=== PATIENT | female | born 1970 | race Caucasian/White ===

== ENCOUNTER 2016-12-20 16:27 | Inpatient (IN) | payer MEDICARE, BC ==
--- NOTE | ~2016-12-20 | HP ---
History And Physical [place] [id number] [facility] [place]. [address] NAME: ORLIN VERA : 68 STATUS : ADM Milagros PAT#: [id number] AGE: 46 ADM/REG DATE : 12/20/16 MR#: [id number] REPORT SERV DATE: 12/21/16 DICTATED BY: MICHAEL MURDOCK DATE: 12/20/16 REPORT STATUS : Draft TRANSCRIBED BY: MODL DATE: 12/20/16 DATE OF ADMISSION: 12/20/2016 REASON FOR ADMISSION: Nausea, vomiting, and diarrhea. Primary care doctor appears to be unclear, sees Dr. Hobson for her endocrinology needs for which she has been diagnosed with Gasconade's for the past few years. CHIEF COMPLAINT: Nausea, vomiting, and diarrhea. HISTORY OF PRESENT ILLNESS: This is an unfortunate 46-year-old female, apparently seems to have significant utilization of the hospital multiple admissions in the last 12 months, recently discharged in July 2016. The patient has a known history of adrenal insufficiency with Gasconade's disease with clinical presentation at that time being weakness with nausea, vomiting, and diarrhea. The patient is taking about 45 mg daily of hydrocortisone, has not been able to taper off. Sees Dr. Hobson as an outpatient. Has known history of IBS, fibromyalgia, fatty liver disease, hypertension, morbid obesity, chronic pain, known history of lumbar fusion, cervical fusion, chronic pain management on not only Oxymorphone, but also p.r.n. Roxicodone. Known history of DJD, hyperlipidemia, migraine headaches. Has not been able to tolerate any preventive medication like Topamax given interaction with her other medications. The patient comes in since yesterday having nausea, vomiting, and diarrhea. The patient states increased weakness, not able to get out of bed, consistent with her prior Gasconade's disease presentations. She is not hypotensive which is classic with Gasconade's crisis (167/88), but complains of exquisite pain all over, but most notably in her low back. Once more IV Dilaudid she just got 2 mg, thereafter says her pain is 6/10 still. The patient states she had a low-grade fever. No chills. Positive nausea. Was greenish with emesis. Positive diarrhea. No chest pain. No chest pressure. No increased shortness of breath. No recent cough for the last 48 hours. Positive abdominal pain consistent with her past adrenal insufficiency presentations. The patient in the emergency department has received a liter of LR bolus, Solu-Cortef 100 mg IV, Zofran 4 mg, and Dilaudid 2 mg. The patient as an outpatient received 40 mg of intramuscular Solu-Medrol. REVIEW OF SYSTEMS: Review of systems done, see HPI. Otherwise, negative. PAST MEDICAL HISTORY: See above. PAST SURGICAL HISTORY: See above including cholecystectomy, hysterectomy, and tonsillectomy. ALLERGIES: PREDNISONE UNCLEAR REACTION, APPARENTLY MAKES HER HAVE ADRENAL CRISIS. History And Physical [address] [place]. [address] NAME: ORLIN VERA : 68 STATUS : ADM Milagros PAT#: [id number] AGE: 46 ADM/REG DATE : 12/20/16 MR#: [id number] REPORT SERV DATE: 12/21/16 DICTATED BY: MICHAEL MURDOCK DATE: 12/20/16 REPORT STATUS : Draft TRANSCRIBED BY: DAVID DATE: 12/20/16 HOME MEDICATIONS: See MAR. We will continue what is relevant. SOCIAL HISTORY: Does not smoke. Do drugs. Do alcohol. , two biological children. Homemaker in the past. FAMILY HISTORY: Hypertension at least one parent. AAA in her father. OBJECTIVE: VITAL SIGNS: 167/88, 99.2, pulse 99, 18 respirations, and 98% on room air. GENERAL: No acute distress. HEENT: PERRLA. No scleral icterus. CARDIOVASCULAR: Muffled heart sounds. Regular rate and rhythm. RESPIRATORY: Decreased breath sounds bibasilarly. Limited by body habitus. ABDOMEN: Mild tenderness to palpation, more periumbilical region. No peritoneal signs. No rebound tenderness. EXTREMITIES: 1+ nonpitting edema. NEURO: A and O x4/4. GCS 15. PSYCH: Mildly anxious. LABORATORY DATA: White count is a bit mildly elevated 13.4000, 15.7 hemoglobin, and 315,000 platelets. A 4.0 of potassium, 26 bicarb, 0.71 creatinine, 14 BUN, 139 sodium, 179 sugar, and alkaline phosphatase mildly elevated 121. LFTs otherwise normal. Urinalysis is clean. Imaging CT abdomen and pelvis, which is pending. ASSESSMENT AND PLAN: 1. Nausea, vomiting, and diarrhea which is consistent with her past adrenal insufficiency exacerbation presentations. Usually abdominal pain and nausea would be consistent in this situation. The patient does not have the classical sign of hypotension thankfully. 2. Adrenal insufficiency exacerbation. 3. History of taking doxycycline for rosacea rule out Clostridium difficile with diarrhea. 4. Systemic inflammatory response syndrome. 5. Migraine headaches lasting more than 4 hours. 6. Chronic opioid dependence. PLAN: Admit the patient for observation. I will panculture the patient given SIRS criteria, empiric Levaquin and Flagyl thereafter, already given 100 mg of IV Solu-Cortef. We will do D50 IV tomorrow. We will also go ahead and give her Imitrex for systolic is less than 160. For migraine headache if persist despite Imitrex consider possible CT. Elucidate nausea, vomiting, and diarrhea with a stool C. diff and CT abdomen and pelvis. We will also give her IV Dilaudid for pain control. PPI IV b.i.d. could consider possible GI cocktail which I History And Physical [address] [address] NAME: ORLIN VERA : 68 STATUS : ADM Milagros PAT#: [id number] AGE: 46 ADM/REG DATE : 12/20/16 MR#: [id number] REPORT SERV DATE: 12/21/16 DICTATED BY: MICHAEL MURDOCK DATE: 12/20/16 REPORT STATUS : Draft TRANSCRIBED BY: MODL DATE: 12/20/16 will start now for possible peptic ulcer disease, has rapid improvement despite Solu-Cortef consider possible peptic ulcer disease. See rest of my orders. All questions were answered. It took well over 60 minutes to do. I would like to note that some of the staff in the ER stay the patient may be very much pain seeking. WST/MODL Michael Murdock DO / [id number] CC: MD Kirk Truong M.D.
--- NOTE | ~2016-12-20 | DS ---
Discharge Summary [facility] [address] [facility] [place]. [address] NAME: ORLIN VERA : 68 STATUS : DIS IN PAT#: [id number] AGE: 46 ADM/REG DATE : 12/20/16 MR#: [id number] REPORT SERV DATE: 12/25/16 DICTATED BY: ATIF STORY DATE: 12/22/16 REPORT STATUS : Draft TRANSCRIBED BY: MODAnastacia DATE: 12/22/16 ADMISSION DATE: 12/20/2016 DISCHARGE DATE: 12/22/2016 DISCHARGE DIAGNOSES: 1. Acute gastroenteritis. 2. Phil Campbell disease with acute crisis. 3. Chronic pain syndrome. 4. Irritable bowel syndrome. 5. Hypertension. 6. Morbid obesity. 7. Degenerative joint disease. 8. Hyperlipidemia. 9. Obstructive sleep apnea, on CPAP. 10.Fibromyalgia. 11.Migraine headaches. CONSULTANTS DURING THIS HOSPITALIZATION: None. INVASIVE PROCEDURES DONE DURING THIS HOSPITALIZATION: None. BRIEF HISTORY OF PRESENT ILLNESS: The patient is a 46-year-old white female, suffering from Phil Campbell disease, came in with nausea, vomiting, and diarrhea with dehydration and hypovolemia, so she was admitted. For detailed history and physical exam, please see note dictated by Dr. Josué Jones on 12/20/2016. HOSPITAL COURSE: After being admitted to the hospital, this patient was given IV Solu- Cortef. She was given aggressive IV fluid resuscitation. The CT of the abdomen and pelvis was done, which showed some dilated loops of bowel with fluid collection and liquid stool, which was thought to be gastroenteritis in nature, but there was no evidence of any obstruction or ileus. This patient is tolerating now a soft diet. Her lab work has all remained completely normal. Her blood pressure is improved to normal levels and she feels well enough that she wants to go home and recover in the home setting. DISCHARGE DISPOSITION: Home. DISCHARGE ACTIVITY: As tolerated. DISCHARGE DIET: Low-sodium diet. DISCHARGE MEDICATIONS: ProAir two puffs twice daily p.r.n., albuterol nebulizing treatments q.4-6 hours p.r.n. for shortness of breath, Celebrex 200 mg once daily, Zyrtec 10 mg once daily, Klonopin 1 mg once at bedtime, vitamin B12 1000 mcg p.o. daily, Flexeril 10 mg twice daily p.r.n. for muscle spasms. Voltaren Gel topically scheduled p.r.n. for pain. Trulicity 0.75 mg pen injector subcutaneously Sunday. Vivelle-Dot patch twice weekly, Prozac 20 mg once at bedtime, Advair HFA 115/21 two puffs daily, Cortef 15 mg p.o. every Discharge Summary [place] [address] [address] [address] NAME: ORLIN VERA : 68 STATUS : DIS IN PAT#: [id number] AGE: 46 ADM/REG DATE : 12/20/16 MR#: [id number] REPORT SERV DATE: 12/25/16 DICTATED BY: ATIF STORY DATE: 12/22/16 REPORT STATUS : Draft TRANSCRIBED BY: DAVID DATE: 12/22/16 morning and 5 mg four times daily during the day. Losartan 100 mg every evening, to be held until followed up with primary care physician. Magnesium 400 mg once daily. Metformin will be held as well. Multivitamins one tablet daily, Starlix 120 mg p.o. with meals, oxycodone 10 mg p.o. four times daily p.r.n. for pain, Opana ER 15 mg once at bedtime, Klor-Con 20 mEq twice daily, Mirapex 0.5 mg p.o. after lunch and supper. Lyrica 100 mg p.o. three times daily, promethazine 25 mg every four to six hours p.r.n. for pain, Zantac 300 mg once at bedtime, simvastatin 20 mg p.o. once at bedtime, vitamin E 400 mg p.o. daily, Nasacort AQ two sprays each nostril once daily, Patanase spray, and Solu-Medrol 40 mg IM p.r.n. for Teofilo's crisis. DISCHARGE FOLLOWUP: With Dr. Jesus Hobson as scheduled previously. With Dr. Kirk Dorado in one week for repeat blood pressure check and re-initiation of losartan. More than 30 minutes spent planning this patient's discharge, reconciling medications, discussing hospital care, and follow up with the patient and documenting this discharge. BONNIE/DAVID Atif Story M.D. / [id number] CC: MD Kirk Truong M.D. David Huffman, M.D.
[2016-12-20 15:41] LABS: WBC (NOT ORDERED) (RFLEX) 0 (0-5)
[2016-12-20 15:48] LABS: ASCORBIC ACID (UR NOT ORDER) NEG (NEG); BILIRUBIN, URINE NEGATIVE (NEG); ER URINALYSIS TAT 0 Hrs 08 Mins; KETONE, URINE 20 MG/DL (NEG); LEUKOCYTE ESTERASE(NOT OR NEG (NEG); NITRITE (URINE) NEG (NEG)
[2016-12-20 15:59] LABS: BASOPHILS 0 %; EOSINOPHILS 0.1 %; EOSINOPHILS ABSOLUTE 0.01 10/3/uL (0.0-0.53); IMMATURE GRANULOCYTES 0.4 %; IMMATURE GRANULOCYTES ABSOLUTE 0.05 10/3/uL (0.0-0.11); LYMPHOCYTES ABSOLUTE 0.27 10/3/uL (0.67-4.30); MEAN CORPUS HGB CONC 32.8 g/dL (32.0-36.0); MEAN CORPUSCULAR HEMOGLOB 26.3 pg (26.0-34.0); MEAN CORPUSCULAR VOLUME 80.4 fL (80-100); MEAN PLATELET VOLUME 9.5 fL (9.2-13.0); MONOCYTES 1.3 %; MONOCYTES ABSOLUTE 0.18 10/3/uL (0.21-1.20); NEUTROPHILS 96.2 %; NEUTROPHILS ABSOLUTE 12.91 10/3/uL (2.02-8.40); PLATELET COUNT 315 10/3/uL (150-400); RBC DISTRIBUTION WIDTH 15.2 % (12.0-16.0); RED CELL COUNT 5.96 10/6/uL (4.0-5.6); WHITE BLOOD CELLS 13.4 10/3/uL (4.5-10.5)
[2016-12-20 16:01] LABS: HEMATOCRIT 47.9 % (36.0-48.0); HEMOGLOBIN 15.7 g/dL (12.0-16.0); MANUAL DIFF NO %
[2016-12-20 16:15] LABS: A/G RATIO 1.1 (0.7-1.9); ALBUMIN 4.3 G/DL (3.5-5.0); ALKALINE PHOSPHATASE 121 U/L (45-117); BUN (BLOOD UREA NITROGEN) 14 MG/DL (6-23); CALCIUM, SERUM 9.3 MG/DL (8.5-10.4); CHLORIDE, SERUM 102 MMOL/L (96-112); CO2 (CARBON DIOXIDE) 26 MMOL/L (24-34); CREATININE 0.71 MG/DL (0.55-1.02); GFR AFRICAN AMERICAN 118 ML/MIN (>=60); GFR NON AFRICAN AMERICAN 101 ML/MIN (>=60); GLOBULIN 3.8 G/DL (2.5-4.1); GLUCOSE, SERUM 179 MG/DL (60-99); SGOT(AST) 21 U/L (5-40); SGPT(ALT) 48 U/L (5-65); SODIUM, SERUM 139 MMOL/L (135-148); TOTAL BILIRUBIN 0.6 MG/DL (0-1.2); TOTAL PROTEIN 8.1 G/DL (6.0-8.5)
[~2016-12-20 16:27] MED LIST: AMB10 PO; AMITRIPTYLINE PO; CALCIUM OTC PO; CALTRA600D PO; CALTRAT600 PO; CELEBREX2 PO; CHLORZOXAZON500 MG OR; CLARIT10 PO; CORICIDIN PO; CORTEF5 PO; COZ50 PO; COZAAR100 MG PO; DIL4TAB PO; DIOV80 PO; DIURETIC RX PO; DSS PO; DULERA 200 MCG/13 GM INH; DURA25 TOP; ENDOCET1 TA3 PO; EXALGO8 MG PO; FIBER OTC PO; FIBERCON PO; FISH-EPA1000 MG PO; FLEX PO; FLEXERIL5 MG PO; FLORINEF0.1 MG PO; GLUCPH PO; HYGROTON 25 MG25 MG PO; IBU800 PO; IMITREX PO; IMITREX25 PO; IMITREX50 PO; JARDI25B PO; KDUR20 PO; KLONO1 PO; KLOR-CON M2020 MEQ PO; LINZESS 290 M290 MCG PO; LIOR10 PO; LORTAB10 PO; LYRICA100 MG PO; LYRICA150 MG PO; LYRICA200 MG PO; MAGNESIUM 250MG OTC PO; MAGNESIUM 250MG PO; MAGNESIUM OTC PO; MAGOX4 PO; METHOC750B PO; MIRAPEX250 PO; MIRAPEX5 PO; MONODOX100 MG PO; MOVANTIK25 MG PO; MSCONT15 PO; MULTIPLE VIT PO; MULTIVIT/MIN PO; MULTIVITAMI1 PO; NASACORTAQ NAS; NEUR100 PO; NEUR600 PO; OPANA ER15 MG PO; OXYCOD PO; OXYCODONE HCL 10MG PO; PARAFON FORT PO; PATANASE0.6 % NAS; PCET PO; PEP20 PO; PERCOCET1 TA2 PO; PERCOCET1 TA4 PO; POT GLUCONAT550 M1 PO; POTASSIUM OTC PO; PR25 PO; PRILO PO; PRILOSEC40 MG PO; PROAIR HFA INH; PROVENTSOL INH; PROZAC PO; SENTAB PO; STARLIX120 PO; THERGRANM PO; TOPAMAX25 PO; V5; VIB50 PO; VICTOZA18 MG/3 ML SC; VITAMIN D OTC PO; VITAMIN D1000 UNI1 PO; VITAMIN D31000 UNIT PO; VITE PO; XIFAXAN550 MG PO; ZANAFLEX 4 MG TA4 MG PO; ZANAFLEX2 MG PO; ZANTAC 150 PO; ZOCOR20 PO; ZOFRAN8 PO; ZYRTEC ALLGY10 MG PO; [UNRECOGNIZED DRUG - OTHER] PO; [UNRECOGNIZED DRUG - OTHER] TOP; [UNRECOGNIZED DRUG - REMARK]; [UNRECOGNIZED DRUG - REMARK] PO
[2016-12-20] MEDS ORDERED: KLOR-CON M2020 MEQ PO (17:12)
[2016-12-20] MEDS ORDERED: ADVAIR115P INH (17:12)
[2016-12-20] MEDS ORDERED: VIBRATAB100 MG PO (17:12)
[2016-12-20] MEDS ORDERED: ALBUTEROL0.083 % INH (17:13)
[2016-12-20] MEDS ORDERED: CELEBREX2 PO (17:13)
[2016-12-20] MEDS ORDERED: COZAAR100 MG PO (17:13)
[2016-12-20] MEDS ORDERED: KLONO1 PO (17:14)
[2016-12-20] MEDS ORDERED: PROAIR HFA INH (17:14)
[2016-12-20] MEDS ORDERED: VIVELLE SY0.05 MG/24 TOP (17:15)
[2016-12-20] MEDS ORDERED: VOLTAREN1 % TOP (17:15)
[2016-12-20] MEDS ORDERED: ZYRTEC ALLGY10 MG PO (17:15)
[2016-12-20] MEDS ORDERED: FLEX PO (17:16)
[2016-12-20] MEDS ORDERED: CORTEF5 PO ×2 (17:16→17:17)
[2016-12-20] MEDS ORDERED: PR25 PO (17:17)
[2016-12-20] MEDS ORDERED: LYRICA100 MG PO (17:18)
[2016-12-20] MEDS ORDERED: FORTAMET500 MG PO (17:18)
[2016-12-20] MEDS ORDERED: MIRAPEX5 PO (17:19)
[2016-12-20] MEDS ORDERED: NASACORTAQ NAS (17:19)
[2016-12-20] MEDS ORDERED: OPANA ER15 MG PO (17:20)
[2016-12-20] MEDS ORDERED: OXYCOD PO (17:20)
[2016-12-20] MEDS ORDERED: PATANASE NASAL SPRAY NAS (17:21)
[2016-12-20] MEDS ORDERED: PROZAC PO (17:22)
[2016-12-20] MEDS ORDERED: ZANTAC300 MG PO (17:22)
[2016-12-20] MEDS ORDERED: STARLIX120 PO (17:23)
[2016-12-20] MEDS ORDERED: METHYLPREDNISOLONE 40 MG/ML IM (17:23)
[2016-12-20] MEDS ORDERED: TRULICITY0.75 MG/0. SC (17:26)
[2016-12-20] MEDS ORDERED: MULTIVITAMI1 PO (17:27)
[2016-12-20] MEDS ORDERED: VITE PO (17:27)
[2016-12-20] MEDS ORDERED: ZOCOR20 PO (17:27)
[2016-12-20] MEDS ORDERED: MAGOX4 PO (17:27)
[2016-12-20] MEDS ORDERED: CYANO1000T PO (17:28)
[2016-12-21 05:56] LABS: BASOPHILS 0.1 %; BASOPHILS ABSOLUTE 0.01 10/3/uL (0.0-0.16); EOSINOPHILS 0.1 %; EOSINOPHILS ABSOLUTE 0.01 10/3/uL (0.0-0.53); HEMOGLOBIN 15.4 g/dL (12.0-16.0); IMMATURE GRANULOCYTES 0.6 %; IMMATURE GRANULOCYTES ABSOLUTE 0.07 10/3/uL (0.0-0.11); LYMPHOCYTES ABSOLUTE 1.15 10/3/uL (0.67-4.30); MEAN CORPUS HGB CONC 32.1 g/dL (32.0-36.0); MEAN CORPUSCULAR HEMOGLOB 26.6 pg (26.0-34.0); MEAN PLATELET VOLUME 9.6 fL (9.2-13.0); MONOCYTES 9.8 %; MONOCYTES ABSOLUTE 1.12 10/3/uL (0.21-1.20); NEUTROPHILS 79.4 %; NEUTROPHILS ABSOLUTE 9.09 10/3/uL (2.02-8.40); PLATELET COUNT 317 10/3/uL (150-400); RBC DISTRIBUTION WIDTH 15.5 % (12.0-16.0); RED CELL COUNT 5.79 10/6/uL (4.0-5.6); WHITE BLOOD CELLS 11.5 10/3/uL (4.5-10.5)
[2016-12-21 05:57] LABS: MANUAL DIFF NO %; MEAN CORPUSCULAR VOLUME 82.9 fL (80-100)
[2016-12-21 06:35] LABS: A/G RATIO 1.1 (0.7-1.9); ALBUMIN 3.9 G/DL (3.5-5.0); ALKALINE PHOSPHATASE 110 U/L (45-117); CHLORIDE, SERUM 104 MMOL/L (96-112); CO2 (CARBON DIOXIDE) 25 MMOL/L (24-34); CREATININE 0.61 MG/DL (0.55-1.02); GFR AFRICAN AMERICAN 125 ML/MIN (>=60); GFR NON AFRICAN AMERICAN 108 ML/MIN (>=60); GLOBULIN 3.5 G/DL (2.5-4.1); PHOSPHORUS, SERUM 2.9 MG/DL (2.5-4.5); SGOT(AST) 25 U/L (5-40); SGPT(ALT) 45 U/L (5-65); SODIUM, SERUM 142 MMOL/L (135-148); TOTAL BILIRUBIN 0.6 MG/DL (0-1.2); TOTAL PROTEIN 7.4 G/DL (6.0-8.5); TROPONIN I <0.02 NG/ML (<0.05)
[2016-12-21 06:37] LABS: BUN (BLOOD UREA NITROGEN) 20 MG/DL (6-23); GLUCOSE, SERUM 116 MG/DL (60-99); ULTRASENSITIVE TSH 0.336 MCIU/ML (0.358-3.740)
[2016-12-21 06:51] LABS: B NATRIURETIC PEPTIDE (BNP) < 2.0 PG/ML (< 100.0)
[2016-12-21 07:36] LABS: PROCALCITONIN 0.08 ng/mL (<0.5)
[2016-12-21 07:38] LABS: GLYCOHEMOGLOBIN (HbA1c) 5.5 % (4.7-6.1)
[2016-12-22 04:29] LABS: BUN (BLOOD UREA NITROGEN) 19 MG/DL (6-23); CALCIUM, SERUM 8.3 MG/DL (8.5-10.4); CHLORIDE, SERUM 109 MMOL/L (96-112); CO2 (CARBON DIOXIDE) 24 MMOL/L (24-34); CREATININE 0.63 MG/DL (0.55-1.02); GFR AFRICAN AMERICAN 124 ML/MIN (>=60); GFR NON AFRICAN AMERICAN 107 ML/MIN (>=60); GLUCOSE, SERUM 120 MG/DL (60-99); PHOSPHORUS, SERUM 3.5 MG/DL (2.5-4.5); SODIUM, SERUM 142 MMOL/L (135-148)
[2016-12-22 05:37] LABS: BASOPHILS 0.2 %; BASOPHILS ABSOLUTE 0.01 10/3/uL (0.0-0.16); EOSINOPHILS 0.4 %; EOSINOPHILS ABSOLUTE 0.02 10/3/uL (0.0-0.53); HEMOGLOBIN 12.7 g/dL (12.0-16.0); IMMATURE GRANULOCYTES 0.4 %; IMMATURE GRANULOCYTES ABSOLUTE 0.02 10/3/uL (0.0-0.11); LYMPHOCYTES ABSOLUTE 1.18 10/3/uL (0.67-4.30); MEAN CORPUS HGB CONC 32.3 g/dL (32.0-36.0); MEAN CORPUSCULAR HEMOGLOB 26.7 pg (26.0-34.0); MEAN CORPUSCULAR VOLUME 82.6 fL (80-100); MEAN PLATELET VOLUME 9.6 fL (9.2-13.0); MONOCYTES 13.4 %; MONOCYTES ABSOLUTE 0.72 10/3/uL (0.21-1.20); NEUTROPHILS 63.6 %; NEUTROPHILS ABSOLUTE 3.41 10/3/uL (2.02-8.40); PLATELET COUNT 236 10/3/uL (150-400); RBC DISTRIBUTION WIDTH 15.6 % (12.0-16.0); RED CELL COUNT 4.76 10/6/uL (4.0-5.6)
[2016-12-22 05:44] LABS: HEMATOCRIT 39.3 % (36.0-48.0); MANUAL DIFF NO %; WHITE BLOOD CELLS 5.4 10/3/uL (4.5-10.5)
== END 2016-12-22 16:12 | disposition home or self-care (01) | DRG 644 ==
LOC: ER 16:27 → CDU1 18:17
PROVIDERS: Internal Medicine; Nurse Practitioner Acute Care
DX: E27.1 Primary adrenocortical insufficiency (principal); Z68.42 Body mass index [BMI] 45.0-49.9, adult; I10 Essential (primary) hypertension; K52.9 Noninfective gastroenteritis and colitis, unspecified; G89.4 Chronic pain syndrome; K58.9 Irritable bowel syndrome, unspecified; E66.01 Morbid (severe) obesity due to excess calories; M19.90 Unspecified osteoarthritis, unspecified site; E78.5 Hyperlipidemia, unspecified; G47.33 Obstructive sleep apnea (adult) (pediatric); M79.7 Fibromyalgia; G43.909 Migraine, unspecified, not intractable, without status migrainosus
CPT/HCPCS: 74176; 80048; 80053; 81001; 82962; 83036; 83605; 83690; 83735; 83880; 84100; 84145; 84443; 84484; 85025; 87040; 87449; 87493; 87493-59; 93005; 94640; 96374; 96375; 97161-GP; 99285; A9270-GY; C9113; J1170; J1720; J1956; J2405